=== PATIENT | male | born 1970 | race Caucasian/White ===

== ENCOUNTER 2021-01-23 21:15 | Emergency (ER) | payer OTHER, SELFPAY ==
--- NOTE | ~2021-01-23 | XR_ITS ---
EXAMINATION: XR HIP, LEFT CLINICAL INFORMATION: Status post fall COMPARISON: None TECHNIQUE: Single view of the pelvis and 2 views of the left hip. FINDINGS: Pelvic image shows no fracture. 2 detail views of the left hip do not show fracture or dislocation. XR/XR hip LT w PEL1V IMPRESSION: No pelvic fracture is seen. No fracture or dislocation of the left hip.
--- NOTE | ~2021-01-23 | XR_ITS ---
EXAMINATION: XR FACIAL BONES CLINICAL INFORMATION: Fall COMPARISON: None TECHNIQUE: 4 views FINDINGS: No fracture XR/XR facial bones min 3V IMPRESSION: No fracture of the facial bones on the imaging submitted.
[2021-01-23 21:16] VITALS: BP 154/89; PULSE 77; RESP 16; TEMP 36.8; O2SAT 100; BMI 26.3
--- NOTE | 2021-01-23 21:52 | ED.FALL ---
HPI - Fall General Chief Complaint: Fall Stated Complaint: fall in shower Time Seen by Provider: 01/23/21 21:52 Source: patient Mode of arrival: ambulatory Limitations: language barrier History of Present Illness HPI Narrative: Patient slipped lost balance and fell in shower hitting his left maxillary area to the wall and left hip to the ground complaining of pain in the left hip and face no loss of consciousness no other injuries patient is ambulatory MD complaint: fall Onset (ago): minute(s) Fall from: standing Related Data Home Medications Medication Instructions Recorded Confirmed folic acid 1 mg tablet 1 mg PO DAILY 11/05/20 11/05/20 methotrexate sodium 2.5 mg tablet 2.5 mg PO QWEEK 11/05/20 11/05/20 Previous Rx's Medication Instructions Recorded pantoprazole 40 mg tablet,delayed 40 mg PO DAILY 90 Days #90 tab 11/05/20 release Allergies Allergy/AdvReac Type Severity Reaction Status Date / Time No Known Allergies Allergy Verified 01/23/21 21:22 [No Known Allergies*] Review of Systems Review of Systems: Constitutional : No Weight loss, No Fever, No Chills ENT/Mouth : No sore throat, No Rhinorrhea Eyes: No Eye Pain, No Swelling Cardiovascular : No Chest Pain, no palpitations Respiratory : No Cough, No Sputum, no shortness of breath Gastrointestinal : no Nausea, No Vomiting, No Diarrhea, No abdominal Pain, no black stools Genitourinary : No Dysuria, No Urinary Frequency Musculoskeletal : No joint pain, No Myalgias, No Joint Swelling Skin : No Skin Lesions, No rash Neuro : No Weakness, No Numbness, No Dizziness, No Headache Psych : No Anxiety/Panic, No Depression Heme/Lymph: No Bruising, No Lymphadenopathy Endocrine : No Polyuria, No Polydipsia All other systems reviewed and are negative [facility] Past Medical History Medical History GERD (gastroesophageal reflux disease) Psoriatic arthritis Surgical History No pertinent past surgical history Family History Family History Father No problems noted. Mother No problems noted. Brother Asthma Social History Social History Smoking Status: Former smoker Advance Directives: No Advance Directives Information Provided: No Physical Exam Vital Signs: Vital Signs: Last Vital Signs Temp 98.2 F 01/23/21 21:16 Pulse 77 01/23/21 21:16 Resp 16 01/23/21 21:16 BP 154/89 H 01/23/21 21:16 Pulse Ox 100 01/23/21 21:16 Body Mass Index 26.3 Const: General: no acute distress Orientation/consciousness: patient oriented x3 HENMT: Head: Yes No palpable skull fracture present, Yes normocephalic and No palpable skull fracture Head images: 1. Soft tissue swelling left maxillary area Eyes: General: appearance normal, both eyes and all related structures Neck: Neck: Yes normal visual inspection Chest: Chest palpation & inspection: normal palpation of entire chest wall Resp: Effort & Inspection: normal respiratory effort Auscultation: clear to auscultation bilaterally, no crackles and no rales Cardio: Palpation: normal PMI Rate: regular rate Rhythm: regular rhythm Heart sounds: S1 normal heart sound present and S2 normal heart sound present GI: Inspection: Yes normal to inspection Palpation (GI): Soft to palpation and nontender Back/Spine/Pelvis: Thoracic/Lumbar Spine: thoracic and lumbar spine normal to inspection, No thoracic spinal tenderness and No lumbar spinal tenderness Skin: General skin exam: no rashes or lesions noted Neuro: General: patient oriented x3 and no focal motor deficits Extrem: General: Yes normal to inspection, Yes full ROM and Yes normal gait Upper/lower leg/hip images: 1. Soft tissue tenderness left iliac area good range of movement of left hip MDM - Fall MDM Narrative Medical decision making narrative: Patient with mechanical fall x-ray of facial bones and left hip negative discharge patient home on ice pack ibuprofen for pain Discharge Plan Discharge Clinical Impression: Fall Qualifiers: Encounter type: initial encounter Qualified Code(s): W19.XXXA - Unspecified fall, initial encounter Contusion Qualifiers: Encounter type: initial encounter Contusion area: lower leg Laterality: left Qualified Code(s): S80.12XA - Contusion of left lower leg, initial encounter Patient Disposition: Home, Self-Care Instructions: Facial Contusion (ED) Additional Instructions: Apply ice. Take Tylenol/ibuprofen for pain as needed Prescriptions: No Action methotrexate sodium 2.5 mg tablet 2.5 mg PO QWEEK RF: 0 folic acid 1 mg tablet 1 mg PO DAILY RF: 0 pantoprazole 40 mg tablet,delayed release (DR/EC) 40 mg PO DAILY 90 Days Qty: 90 RF: 3 Stand Alone Forms: Work/School Release
[2021-01-23] MEDS: Ibuprofen 600 MG TABLET PO (22:52)
== END 2021-01-23 23:01 | disposition home or self-care (01) ==
PROVIDERS: Emergency Provider Internal Medicine; PCP Internal Medicine
DX: S00.83XA Contusion of other part of head, initial encounter (principal); S80.12XA Contusion of left lower leg, initial encounter; W18.2XXA Fall in (into) shower or empty bathtub, initial encounter; Y93.E1 Activity, personal bathing and showering; Y92.031 Bathroom in apartment as the place of occurrence of the external cause; Y99.9 Unspecified external cause status
CPT/HCPCS: 70150; 73502; 99283; 99284

== ENCOUNTER 2022-03-23 08:45 | Day surgery (SDC) | payer OTHER, SELFPAY ==
--- NOTE | 2022-03-22 13:13 | HO.ANESPROP2 ---
Documented by User: Indigo De La Garza NP 03/22/22 13:13 HPI - Anesthesia Eval Consult details Narrative: 51yo M for Colonoscopy PMFSH Active Problems Active Problems: All Active Problems (Updated 12/24/21 @ 09:12 by ALYSSA Maciel) Nausea (Acute) Former smoker (Acute) Shortness of breath (Acute) Chronic cough (Acute) Nausea & vomiting (Acute) Elevated blood pressure reading in office without diagnosis of hypertension (Acute) Overweight (BMI 25.0-29.9) (Acute) Psoriatic arthritis (Acute) GERD (gastroesophageal reflux disease) (Acute) Past Medical History Medical History Elevated blood pressure reading in office without diagnosis of hypertension GERD (gastroesophageal reflux disease) Overweight (BMI 25.0-29.9) Psoriatic arthritis Family History Family History Father No problems noted. Mother No problems noted. Brother Asthma Surgical History Surgical History No pertinent past surgical history Social History Social History Housing: Apartment Are you a primary rn long term care to a significant other at home: No Do you presently have visiting nurse or other home services: No Alcohol intake: former Patient Tobacco Use Status: Former Tobacco user Tobacco use type: Cigarette e-Cigarette/Vaping Use: Never Used Second Hand Smoke Exposure: No Use of substances other than those prescribed or required for medical reasons: No Have you been hit, kicked, punched, or otherwise hurt by someone within the past year? If so, by whom?: No Are you DNR?: No Advance Directives: No Advance Directives Information Provided: Yes Recently lost weight without trying: No Nutrition Risks: No Nutritional Risk Poor oral hygiene: No service: No Current occupational status: employed Current occupational exposures/hazards: No Cognitive needs: No Hearing needs: No Vision needs: No Meds Allergies Allergy/AdvReac Type Severity Reaction Status Date / Time No Known Allergies Allergy Verified 12/24/21 08:21 [No Known Allergies*] Exam Exam Date and Time: March 22, 2022 1313 Assessment and Plan Assessment Anesthesia Assessment: Chart Reviewed Documented by User: Sarina Zaidi MD 03/23/22 10:46 PMFSH Past Medical History Medical History Elevated blood pressure reading in office without diagnosis of hypertension GERD (gastroesophageal reflux disease) Overweight (BMI 25.0-29.9) Psoriatic arthritis Family History Family History Father No problems noted. Mother No problems noted. Brother Asthma Surgical History Surgical History No pertinent past surgical history History of Problems with Anesthesia: No Social History Social History Housing: Apartment Are you a primary rn long term care to a significant other at home: No Do you presently have visiting nurse or other home services: No Alcohol intake: former Patient Tobacco Use Status: Former Tobacco user Tobacco use type: Cigarette e-Cigarette/Vaping Use: Never Used Second Hand Smoke Exposure: No Use of substances other than those prescribed or required for medical reasons: No Have you been hit, kicked, punched, or otherwise hurt by someone within the past year? If so, by whom?: No Are you DNR?: No Advance Directives: No Advance Directives Information Provided: Yes Recently lost weight without trying: No Nutrition Risks: No Nutritional Risk Poor oral hygiene: No service: No Current occupational status: employed Current occupational exposures/hazards: No Cognitive needs: No Hearing needs: No Vision needs: No Meds Allergies Allergy/AdvReac Type Severity Reaction Status Date / Time No Known Allergies Allergy Verified 12/24/21 08:21 [No Known Allergies*] Exam Airway Mallampati Class: III TM Dist: >3cm Neck ROM: Full Loose/Missing/Broken Teeth: No Heart: RRR Lungs: CTA Assessment and Plan Assessment Anesthesia Assessment: Anesthesia Plan Discussed Final Anesthetic Review History of Problems with Anesthesia: No NPO: Yes ASA Class: II Final Preanesthetic Review: Meds/Allgs Chart Reviewed, Consent Obtained/Reviewed and Anes Risks/Benef Reviewed Patient Risk: Low Procedure Risk: Intermediate Anesthetic Plan Anesthetic Plan: MAC: Disposition: Standard PACU
[2022-03-23 09:03] VITALS: BMI 26.6
--- NOTE | 2022-03-23 09:26 | P.HPSUR_ITS ---
Pre-Procedural Eval Section A Date of Service: 03/23/22 Section B Chief Complaint: screening Details of Present Illness: He also describes severe coughing fits when eating food followed by episodes of vomiting, and reflux. denies dysphagia Relevant Family History (Specify if Yes): No Relevant Social History: None (ex smoker) Present Medications: see Short Stay Collaborative assessment Medical History: Significant History (Elevated blood pressure reading in office without diagnosis of hypertension GERD (gastroesophageal reflux disease) Overweight (BMI 25.0-29.9) Psoriatic arthritis) History of Previous Operations: No relevant previous surgery Allergies: Allergies Allergy/AdvReac Type Severity Reaction Status Date / Time No Known Allergies Allergy Verified 12/24/21 08:21 [No Known Allergies*] Review of Systems Sugical H&P ROS: Negative: Constitution, Cardiovascular, Respiratory, Neurological, Psychiatric, Hem-Onc, Allergic/Immunologic, Gastrointestinal, Genitourinary, Musculoskeletal, Integumentary, Endocrine and Ey es/Ears/Nose/Throat Exam Surgical H&P Exam: Normal: HEENT, Normal: Heart, Normal: Lungs, Normal: Extremities, Normal: Abdomen, Normal: Skin and Normal: Neurological Plan Diagnosis/Plan: Change (EGD was added after history obtained from patient as above) I have reviewed the history and physical and performed a pertinent physical examination on my patient. colonoscopy for screening. EGD for post prandial coughing and vomiting to r/o hiatal hernia, gastric outlet obstruction
[2022-03-23 09:28] VITALS: BP 142/106; PULSE 100; RESP 18; TEMP 36.6; O2SAT 99
[2022-03-23] MEDS: Sodium Phosphate,Mono-Dibasic 133 ML ENEMA PR (09:45)
[2022-03-23] MEDS: Lactated Ringers 1,000 ML 100 ML IVCONT (09:45)
--- NOTE | 2022-03-23 10:26 | P.BOP_ITS ---
Brief Operative Note Date of Service: 03/23/22 Pre-op diagnosis: colon screening and post prandial coughing and vomiting Post-op diagnosis: same Procedure: see op note Surgeon: Susie Santana MD Anesthesia: MAC Was an Certified Orthotist Practice Manager used for this Procedure?: No Estimated blood loss (mL): 0 Condition: stable Disposition: PACU
--- NOTE | 2022-03-23 10:26 | P.OP_ITS ---
Operative Note Operative Note Date of Service: 03/23/22 Narrative: Operative Information Procedure Description: EGD, Colonoscopy Indication: colon screening and post prandial coughing and vomiting Anesthesia: MAC FLEXIBLE TRANSORAL UPPER GASTROINTESTINAL ENDOSCOPY AND COLONOSCOPY PROCEDURE NOTE UPPER ENDOSCOPY Consent: Indications for the procedure and potential complications of bleeding, perforation, reaction to medications and missed diagnosis were discussed with the patient and informed consent was obtained. Instrument: Olympus GIF H 190 J mid size upper endoscope Monitoring: Vital signs and clinical assessment, continuous EKG monitoring, Pulse oximetry, Carbon Dioxide monitoring and blood pressure monitoring were done throughout the procedure. Procedure: The patient was placed in the left lateral decubitis position and pre-procedure medications were administered and a bite block was placed. The endoscope was inserted into the mouth and advanced under direct vision to the third part of duodenum. A careful inspection was made as the upper endoscope was withdrawn including a retroflexed examination of the proximal stomach; Findings and interventions are described below. Findings: Larynx:normal Esophagus: GE junction at 38 cm, diaphragm hiatus at 40 cm, consistent with 2 cm sliding hiatal hernia, small streaky erosions noted at GEJ, consistent with LA grade A erosive esophagitis. bx taken from GEJ. small esophageal inlet patch noted. Stomach: Streakly linear erosions in body and antrum. Biopsies were obtained. Grade 2 flap valve on retroflexed examination of the cardia. Duodenum: Moderate severe bulbar duodenitis, bx taken Intervention: Biopsies as noted above COLONOSCOPY Instrument: Olympus variable stiffness pediatric scope 190L Colonoscopy Monitoring: Vital signs and clinical assessment, continuous EKG monitoring, Pulse oximetry, Carbon Dioxide monitoring and blood pressure monitoring were done throughout the procedure. Colon withdrawal time was 7 minutes. Procedure: The patient was placed in the left lateral decubitis position and pre-procedure medications were administered. After a digital rectal examination of the ano-rectum, the video colonoscope was inserted into the rectum and advanced through the colon to the cecum/TI. The colonoscope was slowly withdrawn in a retrograde panoramic fashion and the colon mucosa was carefully examined including a retroflexed view of the rectum. Findings and interventions are described below. Procedure Difficulty:easy Findings: Terminal Ileum-normal Cecum:normal right sided retroflexion was normal Ascending Colon: normal Transverse Colon -normal Descending Colon:normal Sigmoid Colon: mild diverticulosis with small tics seen Rectum: Retroflexion with small internal hemorrhoids, grade I with skin tags Anorectum - normal Colon preparation: [place] Bowel Preparation Scale Right colon; 2 Transverse colon: 3 Left colon; 3 (0 = Unprepared colon segment with mucosa not seen due to solid stool that cannot be cleared. 1 = Portion of mucosa of the colon segment seen, but other areas of the colon segment not well seen due to staining, residual stool and/or opaque liquid. 2 = Minor amount of residual staining, small fragments of stool and/or opaque liquid, but mucosa of colon segment seen well. 3 = Entire mucosa of colon segment seen well with no residual staining, small fragments of stool or opaque liquid) Impression and Post Procedure Diagnosis: Endoscopy Findings: erosive gastritis erosive esophagitis hiatal hernia duodenitis esophgeal inlet patch (benign finding) Colonoscopy Findings: internal hemorrhoids diverticular disease Plan: Await Pathology results Repeat Colonoscopy in 10 years or earlier if clinically indicated High fiber diet leaflet avoid straining at stool, epsom salts and sitz bath, anusol supps or cream If H pylori pos then treat Recommend High dose PPI for 3months then titrate down to response check nsaid history Above findings were reviewed with the patient and relevant handouts were provided if indicated.
[2022-03-23 10:55] VITALS: BP 85/50; PULSE 84; RESP 18; TEMP 36.2; O2SAT 99
[2022-03-23 11:10] VITALS: BP 101/70; PULSE 83; RESP 18; O2SAT 98
[2022-03-23 11:25] VITALS: BP 106/70; PULSE 84; RESP 18; TEMP 36.2; O2SAT 98
== END 2022-03-23 11:55 | disposition home or self-care (01) ==
PROVIDERS: PCP Internal Medicine; Visit Provider Internal Medicine Gastroenterology
PROC: 0DJD8ZZ Inspection of Lower Intestinal Tract, Via Natural or Artificial Opening Endoscopic (ICD-10-PCS; CPT 45378; principal; 2022-03-23 10:20)
DX: Z12.11 Encounter for screening for malignant neoplasm of colon (principal); K57.30 Diverticulosis of large intestine without perforation or abscess without bleeding; K64.0 First degree hemorrhoids; K64.4 Residual hemorrhoidal skin tags; K21.9 Gastro-esophageal reflux disease without esophagitis; K29.60 Other gastritis without bleeding; K29.80 Duodenitis without bleeding; K20.80 Other esophagitis without bleeding; K44.9 Diaphragmatic hernia without obstruction or gangrene; Q39.8 Other congenital malformations of esophagus; R05.3 Chronic cough; R06.02 Shortness of breath; R03.0 Elevated blood-pressure reading, without diagnosis of hypertension; E66.3 Overweight; Z68.26 Body mass index [BMI] 26.0-26.9, adult; L40.50 Arthropathic psoriasis, unspecified; Z79.899 Other long term (current) drug therapy; Z87.891 Personal history of nicotine dependence
CPT/HCPCS: 45378; 43239; 88305; 88342

== ENCOUNTER 2022-05-05 09:13 | Outpatient (REF) | payer OTHER, SELFPAY ==
[2022-05-06 17:27] LABS: H Pylori Breath Test Negative (Negative)
== END 2022-05-05 09:14 | disposition home or self-care (01) ==
LOC: HO.LAB 09:13
PROVIDERS: Visit Provider Internal Medicine Gastroenterology
DX: K21.9 Gastro-esophageal reflux disease without esophagitis (principal); R11.0 Nausea
CPT/HCPCS: 36415; 83013

== ENCOUNTER 2023-08-04 14:59 | Outpatient (AMB) | payer OTHER, SELFPAY ==
--- NOTE | 2023-08-04 15:02 | A.OFFPC_ITS ---
Vital Signs 08/04/23 15:03 Height 5 ft 7 in Weight 169 lb BMI 26.5 BP 126/82 Blood Pressure Location Lt brachial Position Sitting Intake Visit Reasons: physical exam Intake Note: Patient here for a physical exam [employer] Required: No Accompanied by: Self / Same As Patient Allergies No Known Allergies [No Known Allergies*] Allergy (Verified 08/04/23 15:15) Medication List - Last Reconciled 08/04/23 by Leann Liz MD No Known Home Meds Tobacco use date assessed: 08/04/23 Dental Screening Dental Screen Date: 08/04/23 Did you have a dental visit in the last 12 months?: Yes Did you have a dental problem in the last 6 months where you did not have access to dental care?: No Was dental information given to patient?: Patient has dentist HPI HPI Comments History of Present Illness Details This is a 52-year-old male that comes for his physical exam. Last colonoscopy was 2021 was normal. No chest pain or shortness of breath. [facility] Medical History Elevated blood pressure reading in office without diagnosis of hypertension Overweight (BMI 25.0-29.9) Psoriatic arthritis GERD (gastroesophageal reflux disease) Surgical History No pertinent past surgical history Family History Father No problems noted. Mother No problems noted. Brother Asthma Social History Housing: Apartment Are you a primary health care analyst to a significant other at home: No Do you presently have visiting nurse or other home services: No Alcohol intake: former Patient Tobacco Use Status: Former Tobacco user Tobacco use type: Cigarette e-Cigarette/Vaping Use: Never Used Second Hand Smoke Exposure: No service: No Current occupational status: employed Current occupational exposures/hazards: No Cognitive needs: No Hearing needs: No Vision needs: No Questionnaire PHQ-9 Over the last 2 weeks, how often have you been bothered by any of the following problems? 1. Little interest or pleasure in doing things: not at all 2. Feeling down, depressed, or hopeless: not at all 3. Trouble falling or staying asleep, or sleeping too much: not at all 4. Feeling tired or having little energy: not at all 5. Poor appetite or overeating: not at all 6. Feeling bad about yourself - or that you are a failure or have let yourself or your family down: not at all 7. Trouble concentrating on things, such as reading the newspaper or watching television: not at all 8. Moving or speaking so slowly that other people could have noticed. Or the opposite - being so fidgety or restless that you have been moving around a lot more than usual: not at all 9. Thoughts that you would be better off or of hurting yourself in some way: not at all Total score: 0 Depression Screening Interpretation: Negative 28850 - PHQ-9 Billing: Yes Source: Developed by Drs. Liang Bravo, Lili Castro, Gigi Cantor and colleagues, with an educational alba from [employer]. Thrive Questionnaire Date Thrive assessed: 08/04/23 I am a: Patient What is your living situation today?: I have a steady place to live Within the past 12 months, did the food you bought not last and you didn't have the money to get more?: Never true Within the past 12 months, did you worry whether your food would run out before you got money to buy more?: Never true Do you have trouble paying for medicines?: No Do you have trouble getting transportation to medical appointments?: No Do you have trouble paying your heating and electricity bill?: No Do you have trouble taking care of your child, family member or friend?: No Do you have trouble with day-to-day activities such as bathing, preparing meals, shopping, managing finances, etc.?: No Are you currently unemployed and looking for a job?: No Are you interested in more education?: No Please select the resources that you would like help with: None Currently or been in a relationship where the following occur: no concerns reported AUDIT C Alcohol Use Questionnaire (AUDIT-C) 1. How often do you have a drink containing alcohol?: Never Total Score: 0 Score Reviewed/Action Taken: No HEATH-7 AMB Questionnaire HEATH-7 Date HEATH - 7 assessed: 08/04/23 Feeling nervous, anxious, or on edge: 0 = Not at all Not being able to stop or control worryin = Not at all Worrying too much about different things: 0 = Not at all Trouble relaxin = Not at all Being so restless that it is hard to sit still: 0 = Not at all Becoming easily annoyed or irritable: 0 = Not at all Feeling afraid as if something awful might happen: 0 = Not at all Total HEATH-7 score (0-4 normal; 5-9 mild; 10-14 moderate; 15-21 severe): 0 Source: Developed by Drs. Liang Bravo, Lili Castro, Gigi Cantor and colleagues, with an educational alba from [employer]. HEATH-7 Assessment Billing HEATH-7 Assessment Tool: HEATH-7 Assessment 29209 Review of Systems Const All systems reviewed & are unremarkable except as noted in HPI and below Eyes Reports no additional complaints, Denies change in vision and Denies other visual disturbances Card Denies chest pain at rest, Denies chest pain with activity, Denies edema, Denies irregular heart rhythm, Denies claudication, Denies dyspnea, Denies dyspnea on exertion, Denies orthopnea, Denies paroxysmal nocturnal dyspnea and Denies slow heart rate Resp Denies cough, Denies dyspnea and Denies dyspnea on exertion GI Denies abdominal pain, Denies change in bowel habits, Denies excessive flatus, Denies nausea and Denies vomiting Denies urinary hesitancy, Denies urinary incontinence and Denies urinary urgency Musc Denies abnormal gait, Denies atrophy, Denies deformity and Denies limited range of motion Skin/Breast Denies bleeding lesions, Denies changing lesions and Denies rash Neuro Denies abnormal gait and Denies lack of coordination Physical exam (Primary Care) Vital Signs: Last Vital Signs BP 126/82 08/04/23 15:03 BMI result Body Mass Index 26.5 Tobacco/Smoking Status: Tobacco use Status Tobacco use date assessed 08/04/23 08/04/23 15:09 Patient Tobacco Use Status Former Tobacco user 08/04/23 15:09 Tobacco use type Cigarette 08/04/23 15:09 e-Cigarette/Vaping Use Never Used 08/04/23 15:09 PHQ-9: PHQ-9 Score PHQ-9: Total score 0 08/04/23 15:09 Depression Screening Interpretation: Negative Thrive Assessment: Date of Thrive Assessment Date Thrive assessed 08/04/23 08/04/23 15:09 Currently or been in a relationship where the following occur: no concerns reported Const Orientation/consciousness: patient oriented x3 HENMT Head: Yes normal to inspection, Yes normocephalic and Yes atraumatic Ears: external ears normal Eyes General: appearance normal, both eyes and all related structures Eyelids: Yes eyelids normal Conjunctivae: conjunctivae normal Neck Neck: Yes normal visual inspection and Yes supple Resp Effort & Inspection: normal respiratory effort Auscultation: clear to auscultation bilaterally Cardio Jugular venous distension: no JVD Rate: regular rate Rhythm: regular rhythm Heart sounds: S1 normal heart sound present and S2 normal heart sound present GI Inspection: Yes normal to inspection Palpation (GI): Soft to palpation and nontender Auscultation: normal bowel sounds Skin General skin exam: no rashes or lesions noted Neuro General: patient oriented x3 and no focal motor deficits Extrem General: Yes full ROM Psych Appearance: grossly normal Assessment and Plan Assessment & Plan (1) Physical exam: Code(s): Z00.00 - Encounter for general adult medical examination without abnormal findings Plan: Repeat in a year Coding Level of Care Code Est Pt Prev Care 40-64y(76691) Diagnoses Physical exam Z00.00 Additional Codes HEATH-7 Assessment Billing - HEATH-7 Assessment Tool: HEATH-7 Assessment 75930 ([id number]) Time Spent (min) 31
[2023-08-04 15:03] VITALS: BP 126/82; BMI 26.5
== END 2023-08-04 15:23 | disposition home or self-care (01) ==
PROVIDERS: PCP Internal Medicine; Visit Provider Internal Medicine
DX: Z00.00 Encounter for general adult medical examination without abnormal findings (principal)
CPT/HCPCS: 99396

== ENCOUNTER 2024-03-20 15:04 | Outpatient (AMB) | payer OTHER, SELFPAY ==
--- NOTE | 2024-03-20 15:05 | A.OFFPC_ITS ---
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 He started to have some silvery scaly plaques in both hands. No chest pain or shortness of breath. Doing well. [facility] Medical History Elevated blood pressure reading in office without diagnosis of hypertension Overweight (BMI 25.0-29.9) Psoriatic arthritis GERD (gastroesophageal reflux disease) Surgical History No pertinent past surgical history Family History Father No problems noted. Mother No problems noted. Brother Asthma Social History Housing: Apartment Are you a primary care manager cna to a significant other at home: No Do you presently have visiting nurse or other home services: No Alcohol intake: former Patient Tobacco Use Status: Former Tobacco user Tobacco use type: Cigarette e-Cigarette/Vaping Use: Never Used Second Hand Smoke Exposure: No service: No Current occupational status: employed Current occupational exposures/hazards: No Cognitive needs: No Hearing needs: No Vision needs: Yes Questionnaire PHQ-9 Over the last 2 weeks, how often have you been bothered by any of the following problems? 1. Little interest or pleasure in doing things: not at all 2. Feeling down, depressed, or hopeless: not at all 3. Trouble falling or staying asleep, or sleeping too much: not at all 4. Feeling tired or having little energy: several days 5. Poor appetite or overeating: not at all 6. Feeling bad about yourself - or that you are a failure or have let yourself or your family down: not at all 7. Trouble concentrating on things, such as reading the newspaper or watching television: not at all 8. Moving or speaking so slowly that other people could have noticed. Or the opposite - being so fidgety or restless that you have been moving around a lot more than usual: not at all 9. Thoughts that you would be better off or of hurting yourself in some way: not at all Total score: 1 Depression Screening Interpretation: Negative Depression Screening Done: Yes 11345 - PHQ-9 Billing: Yes Source: Developed by Drs. Liang Bravo, Lili Castro, Gigi Cantor and colleagues, with an educational alba from [employer]. Thrive Questionnaire Date Thrive assessed: 03/20/24 I am a: Patient What is your living situation today?: I have a steady place to live Within the past 12 months, did the food you bought not last and you didn't have the money to get more?: Never true Within the past 12 months, did you worry whether your food would run out before you got money to buy more?: Never true Do you have trouble paying for medicines?: No Do you have trouble getting transportation to medical appointments?: No Do you have trouble paying your heating and electricity bill?: No Do you have trouble taking care of your child, family member or friend?: No Do you have trouble with day-to-day activities such as bathing, preparing meals, shopping, managing finances, etc.?: No Are you currently unemployed and looking for a job?: No Are you interested in more education?: No Please select the resources that you would like help with: None Currently or been in a relationship where the following occur: no concerns reported THRIVE Score: 0 AUDIT C Alcohol Use Questionnaire (AUDIT-C) 1. How often do you have a drink containing alcohol?: Never Total Score: 0 Score Reviewed/Action Taken: No HEATH-7 AMB Questionnaire HEATH-7 Date HEATH - 7 assessed: 03/20/24 Feeling nervous, anxious, or on edge: 0 = Not at all Not being able to stop or control worryin = Not at all Worrying too much about different things: 0 = Not at all Trouble relaxin = Not at all Being so restless that it is hard to sit still: 0 = Not at all Becoming easily annoyed or irritable: 0 = Not at all Feeling afraid as if something awful might happen: 0 = Not at all Total HEATH-7 score (0-4 normal; 5-9 mild; 10-14 moderate; 15-21 severe): 0 Source: Developed by Drs. Liang Bravo, Lili Castro, Gigi Cantor and colleagues, with an educational alba from [employer]. HEATH-7 Assessment Billing HEATH-7 Assessment Tool: HEATH-7 Assessment 72990 Review of Systems Const All systems reviewed & are unremarkable except as noted in HPI and below Card Denies chest pain at rest, Denies chest pain with activity, Denies edema, Denies irregular heart rhythm, Denies claudication, Denies dyspnea, Denies dyspnea on exertion, Denies orthopnea, Denies paroxysmal nocturnal dyspnea and Denies slow heart rate Resp Denies cough, Denies dyspnea and Denies dyspnea on exertion GI Denies abdominal pain, Denies change in bowel habits, Denies excessive flatus, Denies nausea and Denies vomiting Skin/Breast Reports lesions Physical exam (Primary Care) Vital Signs: Last Vital Signs BP 130/82 03/20/24 15:06 BMI result Body Mass Index 26.6 Tobacco/Smoking Status: Tobacco use Status Tobacco use date assessed 03/20/24 03/20/24 15:12 Patient Tobacco Use Status Former Tobacco user 03/20/24 15:12 Tobacco use type Cigarette 03/20/24 15:12 e-Cigarette/Vaping Use Never Used 03/20/24 15:12 PHQ-9: PHQ-9 Score PHQ-9: Total score 1 03/20/24 15:12 Depression Screening Interpretation: Negative Thrive Assessment: Date of Thrive Assessment Date Thrive assessed 03/20/24 03/20/24 15:12 Currently or been in a relationship where the following occur: no concerns reported Resp Effort & Inspection: normal respiratory effort Auscultation: clear to auscultation bilaterally Cardio Jugular venous distension: no JVD Rate: regular rate Rhythm: regular rhythm Heart sounds: S1 normal heart sound present and S2 normal heart sound present Skin Lesions: lesion noted (Silvery scaly plaques in hands) Extrem General: Yes full ROM Assessment and Plan Assessment & Plan (1) Psoriasis: Code(s): L40.9 - Psoriasis, unspecified Plan: Start cream. Orders: Orders Lipid Panel Today E78.5 - Hyperlipidemia, unspecified Comprehensive [place]. Panel Fast Today L40.9 - Psoriasis, unspecified PSA,Total (Free>4and<10) Today Z12.5 - Encounter for screening for malignant neoplasm of prostate Complete Blood Count Auto Diff Today L40.9 - Psoriasis, unspecified Medications: New hydrocortisone 1% (Anti-Itch (hydrocortisone)) 1 appl topical TID 30 days PRN 28.4 grams 2RF skin irritation L40.9 - Psoriasis, unspecified Coding Level of Care Code Est Pt Level 3 (59302) Diagnoses Psoriasis L40.9 Additional Codes HEATH-7 Assessment Billing - HEATH-7 Assessment Tool: HEATH-7 Assessment 91108 ([id number]) Time Spent (min) 19
[2024-03-20 15:06] VITALS: BP 130/82; BMI 26.6
== END 2024-03-20 15:33 | disposition home or self-care (01) ==
PROVIDERS: PCP Internal Medicine; Visit Provider Internal Medicine
DX: L40.9 Psoriasis, unspecified (principal)
CPT/HCPCS: 99213

== ENCOUNTER 2024-03-21 07:30 | Outpatient (REF) | payer OTHER, SELFPAY ==
[2024-03-21 07:42] LABS: MANUAL DIFF FLAG NO
[2024-03-21 08:03] LABS: Basophils Absolute Auto 0.1 X10*3/uL (0.0-0.2); Basophils Percent Auto 0.8 % (0-2); Eosinophils Absolute Auto 0.2 X10*3/uL (0.0-0.4); Eosinophils Percent Auto 2.4 % (0-4); Hematocrit 49.9 % (42.0-52.0); Imm Gran Abs Auto 0.05 X10*3/uL (0.00-0.03); Imm Gran Pct Auto 0.7 % (0.0-0.4); Lymphocytes Absolute Auto 2.1 X10*3/uL (1.2-4.9); Mean Corpuscular HGB Conc 34.1 g/dl (31.0-36.0); Mean Corpuscular Hemoglobin 30.8 pg (27.0-33.0); Mean Corpuscular Volume 90.4 fL (80.0-98.0); Mean Platelet Volume 10.5 fL (9.4-12.4); Monocytes Absolute Auto 0.5 X10*3/uL (0.1-1.2); Monocytes Percent Auto 6.5 % (2-11); Neutrophils Absolute Auto 4.4 x10*3/uL (2.0-8.3); Neutrophils Percent Auto 60.6 % (45-73); Platelet Count 206 X10*3/uL (160-400); Red Blood Count 5.52 X10*6/uL (4.60-5.80); Red Cell Distribution Width 12.7 % (11.0-16.0); White Blood Count 7.2 X10*3/uL (4.8-10.8)
[2024-03-21 08:35] LABS: Alanine Aminotransferase 47 U/L (0-40); Albumin Level 4.4 g/dL (3.5-5.0); Alkaline Phosphatase 50 U/L (39-117); Anion Gap 13 (12-20); Aspartate Amino Transferase 23 U/L (5-37); Bilirubin Total 1.3 mg/dL (0.0-1.0); Blood Urea Nitrogen 19 mg/dL (9-16); Calcium 9.4 mg/dL (8.4-10.2); Carbon Dioxide 25 mmol/L (22-29); Chloride 107 mmol/L (96-108); Cholesterol 144 mg/dL (<200); Estimated Glomerular Filt Rate > 60; Glucose Fasting 95 mg/dL (60-99); HDL Cholesterol 45 mg/dL (>40); LDL Cholesterol Calculated 77 mg/dL (<100); Potassium 4.3 mmol/L (3.3-5.1); Sodium 141 mmol/L (135-145); Total Protein 7.5 g/dL (6.5-8.0); Triglycerides 111 mg/dL (<150)
[2024-03-21 08:48] LABS: PSA,Total (Free>4and<10) 1.15 ng/mL (0.00-4.00)
== END 2024-03-21 07:31 | disposition home or self-care (01) ==
LOC: HO.LAB 07:30
PROVIDERS: PCP Internal Medicine; Visit Provider Internal Medicine
DX: Z12.5 Encounter for screening for malignant neoplasm of prostate (principal); L40.9 Psoriasis, unspecified; E78.5 Hyperlipidemia, unspecified
CPT/HCPCS: 36415; 80053; 80061; 84153; 85025

== ENCOUNTER 2024-09-18 09:12 | Outpatient (AMB) | payer OTHER, SELFPAY ==
--- NOTE | 2024-09-18 09:16 | MHC.PC.OV ---
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 Colonoscopy done 2021 was normal. He complains of left shoulder pain and left elbow pain that started few weeks ago with no previous trauma. Has full active range of motion. He also has been having elevated blood pressure for the past 2 months with no chest pain or shortness on breath. No headaches. I will start him on losartan and blood pressure will be recheck in 3 weeks by nurse navigator. [facility] Medical History (Updated 09/18/24 @ 09:45 by Leann Liz MD) Elevated blood pressure reading in office without diagnosis of hypertension Overweight (BMI 25.0-29.9) Psoriatic arthritis GERD (gastroesophageal reflux disease) Surgical History No pertinent past surgical history Family History Father No problems noted. Mother No problems noted. Brother Asthma Social History Housing: Apartment Are you a primary respiratory care technician to a significant other at home: No Do you presently have visiting nurse or other home services: No Alcohol intake: former Patient Tobacco Use Status: Former Tobacco user Tobacco use type: Cigarette e-Cigarette/Vaping Use: Never Used Second Hand Smoke Exposure: No service: No Current occupational status: employed Current occupational exposures/hazards: No Cognitive needs: No Hearing needs: No Vision needs: Yes Questionnaire PHQ-9 Over the last 2 weeks, how often have you been bothered by any of the following problems? 1. Little interest or pleasure in doing things: not at all 2. Feeling down, depressed, or hopeless: not at all 3. Trouble falling or staying asleep, or sleeping too much: not at all 4. Feeling tired or having little energy: not at all 5. Poor appetite or overeating: not at all 6. Feeling bad about yourself - or that you are a failure or have let yourself or your family down: not at all 7. Trouble concentrating on things, such as reading the newspaper or watching television: not at all 8. Moving or speaking so slowly that other people could have noticed. Or the opposite - being so fidgety or restless that you have been moving around a lot more than usual: not at all 9. Thoughts that you would be better off or of hurting yourself in some way: not at all Total score: 0 Depression Screening Interpretation: Negative Depression Screening Done: Yes 50112 - PHQ-9 Billing: Yes Source: Developed by Drs. Liang Bravo, Lili Castro, Gigi Cantor and colleagues, with an educational alba from [employer]. Thrive Questionnaire Date Thrive assessed: 09/18/24 I am a: Patient What is your living situation today?: I have a steady place to live Within the past 12 months, did the food you bought not last and you didn't have the money to get more?: I choose not to answer this question Within the past 12 months, did you worry whether your food would run out before you got money to buy more?: I choose not to answer this question Do you have trouble paying for medicines?: No Do you have trouble getting transportation to medical appointments?: No Do you have trouble paying your heating and electricity bill?: No Do you have trouble taking care of your child, family member or friend?: No Do you have trouble with day-to-day activities such as bathing, preparing meals, shopping, managing finances, etc.?: No Are you currently unemployed and looking for a job?: No Are you interested in more education?: Yes Please select the resources that you would like help with: None Currently or been in a relationship where the following occur: No concerns reported THRIVE Score: 0 AUDIT C Alcohol Use Questionnaire (AUDIT-C) 1. How often do you have a drink containing alcohol?: Never Total Score: 0 HEATH-7 AMB Questionnaire HEATH-7 Date HEATH - 7 assessed: 09/18/24 Feeling nervous, anxious, or on edge: 0 = Not at all Not being able to stop or control worryin = Not at all Worrying too much about different things: 0 = Not at all Trouble relaxin = Not at all Being so restless that it is hard to sit still: 0 = Not at all Becoming easily annoyed or irritable: 0 = Not at all Feeling afraid as if something awful might happen: 0 = Not at all Total HEATH-7 score (0-4 normal; 5-9 mild; 10-14 moderate; 15-21 severe): 0 Source: Developed by Drs. Liang Bravo, Lili Castro, Gigi Cantor and colleagues, with an educational alba from [employer]. HEATH-7 Assessment Billing HEATH-7 Assessment Tool: HEATH-7 Assessment 12932 Review of Systems Const All systems reviewed & are unremarkable except as noted in HPI and below Card Denies chest pain at rest, Denies chest pain with activity, Denies edema, Denies irregular heart rhythm, Denies claudication, Denies dyspnea, Denies dyspnea on exertion, Denies orthopnea, Denies paroxysmal nocturnal dyspnea and Denies slow heart rate Resp Denies cough, Denies dyspnea and Denies dyspnea on exertion GI Denies abdominal pain, Denies change in bowel habits, Denies excessive flatus, Denies nausea and Denies vomiting Denies urinary hesitancy, Denies urinary incontinence and Denies urinary urgency Musc Denies abnormal gait, Denies atrophy, Denies deformity and Denies limited range of motion Skin/Breast Reports lesions Neuro Denies abnormal gait, Denies behavioral changes, Denies confusion and Denies lack of coordination Psych Denies behavioral changes and Denies confusion Physical exam (Primary Care) Vital Signs: Last Vital Signs BP 150/102 H 09/18/24 09:17 Care Plan Goal for BP management: Decrease salt intake. Start losartan. Blood pressure goal is equal or less than 130/80. Next steps: Recheck blood pressure with nurse navigator in 3 weeks. BMI result Body Mass Index 26.8 BMI Assessment/Plan discussion: High BMI High, discussed plan: lifestyle, weight reduction, dietary and physical activity Tobacco/Smoking Status: Tobacco use Status Tobacco use date assessed 03/20/24 09/18/24 09:21 Patient Tobacco Use Status Former Tobacco user 09/18/24 09:21 Tobacco use type Cigarette 09/18/24 09:21 e-Cigarette/Vaping Use Never Used 09/18/24 09:21 PHQ-9: PHQ-9 Score PHQ-9: Total score 0 09/18/24 09:21 Depression Screening Interpretation: Negative Thrive Assessment: Date of Thrive Assessment Date Thrive assessed 09/18/24 09/18/24 09:21 Currently or been in a relationship where the following occur: No concerns reported Const General: No confusion Orientation/consciousness: patient oriented x3 and No confusion HENMT Head: Yes normal to inspection, Yes normocephalic and Yes atraumatic Ears: external ears normal Eyes General: appearance normal, both eyes and all related structures Eyelids: Yes eyelids normal Conjunctivae: conjunctivae normal Neck Neck: Yes normal visual inspection and Yes supple Resp Effort & Inspection: normal respiratory effort Auscultation: clear to auscultation bilaterally Cardio Jugular venous distension: no JVD Rate: regular rate Rhythm: regular rhythm Heart sounds: S1 normal heart sound present and S2 normal heart sound present GI Inspection: Yes normal to inspection Palpation (GI): Soft to palpation and nontender Auscultation: normal bowel sounds Skin Other: silvery scaly plaques in palms of hands Neuro General: patient oriented x3, no focal motor deficits and No confusion Extrem General: Yes full ROM Psych Appearance: grossly normal Office Procedures Flu Questionnaire Does the patient have a severe egg allergy?: No Immunizations Fluarix Triv [id number] (PF) 45 mcg (15 mcg x 3)/0.5 mL IM syringe Performing Provider: Leann Liz MD [place] [facility] [place] [facility] Documented (not given) by: NIRU Turner on 09/18/24 09:22 Reason Not Given: Patient Refused Coding Level of Care Code Est Pt Level 3 (54585) Est Pt Prev Care 40-64y(61543) Diagnoses Physical exam Z00.00 Acute pain of left shoulder M25.512 Chronicity: acute Left elbow pain M25.522 Essential hypertension I10 Additional Codes HEATH-7 Assessment Billing - HEATH-7 Assessment Tool: HEATH-7 Assessment 84576 ([id number]) Time Spent (min) 35 Assessment & Plan Assessment & Plan (1) Physical exam: Code(s): Z00.00 - Encounter for general adult medical examination without abnormal findings Category: Medical Plan: Repeat in a year. (2) Left shoulder pain: Code(s): M25.512 - Pain in left shoulder Category: Medical Qualifiers: Chronicity: acute Qualified Code(s): M25.512 - Pain in left shoulder Plan: X-ray ordered. (3) Left elbow pain: Code(s): M25.522 - Pain in left elbow Category: Medical Plan: X-ray ordered. (4) Essential hypertension: Code(s): I10 - Essential (primary) hypertension Category: Medical Plan: Start losartan. Recheck blood pressure with nurse navigator in 3 weeks. Blood pressure goal is equal or less than 130/80. Follow a low-salt diet. Orders: Orders Influenza [id number] Immunization Today Z23 - Encounter for immunization XR shoulder LT min 2V Today M25.512 - Pain in left shoulder XR elbow LT 2V Today M25.522 - Pain in left elbow Lipid Panel Today Z00.00 - Encounter for general adult medical examination without abnormal findings Comprehensive [place]. Panel Fast Today Z00.00 - Encounter for general adult medical examination without abnormal findings Medications: New losartan 25 mg PO DAILY 90 days 90 tabs 1RF I10 - Essential (primary) hypertension
[2024-09-18 09:17] VITALS: BP 150/102; BMI 26.8
[2024-09-18 09:36] VITALS: BP 150/90
== END 2024-09-18 09:39 | disposition home or self-care (01) ==
LOC: HO.HMCH 09:12
PROVIDERS: PCP Internal Medicine; Visit Provider Internal Medicine
DX: Z00.00 Encounter for general adult medical examination without abnormal findings (principal); M25.512 Pain in left shoulder; M25.522 Pain in left elbow; I10 Essential (primary) hypertension

== ENCOUNTER → 2024-09-18 09:12 | Outpatient (BNVA) | payer OTHER, SELFPAY | PROVIDERS: PCP Internal Medicine; Visit Provider Internal Medicine | DX: Z00.01 Encounter for general adult medical examination with abnormal findings (principal); M25.512 Pain in left shoulder; M25.522 Pain in left elbow; I10 Essential (primary) hypertension; Z28.21 Immunization not carried out because of patient refusal | CPT/HCPCS: 90471; 96127 ==

== ENCOUNTER 2024-09-21 09:09 | Outpatient (REF) | payer OTHER, SELFPAY ==
[2024-09-21 11:38] LABS: Alanine Aminotransferase 74 U/L (0-40); Albumin Level 4.6 g/dL (3.5-5.0); Alkaline Phosphatase 55 U/L (39-117); Anion Gap 10 (12-20); Aspartate Amino Transferase 36 U/L (5-37); Bilirubin Total 1.7 mg/dL (0.0-1.0); Blood Urea Nitrogen 17 mg/dL (9-16); Calcium 9.7 mg/dL (8.4-10.2); Carbon Dioxide 29 mmol/L (22-29); Chloride 106 mmol/L (96-108); Cholesterol 165 mg/dL (<200); Estimated Glomerular Filt Rate 57; Glucose Fasting 89 mg/dL (60-99); HDL Cholesterol 50 mg/dL (>40); LDL Cholesterol Calculated 95 mg/dL (<100); Potassium 4.8 mmol/L (3.3-5.1); Sodium 140 mmol/L (135-145); Total Protein 7.9 g/dL (6.5-8.0); Triglycerides 104 mg/dL (<150)
== END 2024-09-21 09:10 | disposition home or self-care (01) ==
LOC: HO.LAB 09:09
PROVIDERS: PCP Internal Medicine; Visit Provider Internal Medicine
DX: Z00.00 Encounter for general adult medical examination without abnormal findings (principal); M25.512 Pain in left shoulder; M25.522 Pain in left elbow
CPT/HCPCS: 36415; 73030; 73070; 80053; 80061

== ENCOUNTER 2025-03-25 09:43 | Outpatient (AMB) | payer OTHER, SELFPAY ==
--- NOTE | 2025-03-25 09:48 | A.OFFPC_ITS ---
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 Accompanied by: Spouse Allergies No Known Allergies [No Known Allergies*] Allergy (Verified 03/25/25 10:00) Medication List - Last Reconciled 03/25/25 by Leann Liz MD hydrocortisone 1% (Anti-Itch (hydrocortisone)) 1 appl topical TID PRN 30 days losartan 100 mg PO DAILY 90 days Tobacco use date assessed: 03/25/25 Dental Screening Dental Screen Date: 03/25/25 Did you have a dental visit in the last 12 months?: No Did you have a dental problem in the last 6 months where you did not have access to dental care?: No Was dental information given to patient?: Patient has dentist HPI HPI Comments History of Present Illness Details The patient is a 54-year-old male presenting with chronic cough, linked to eating, and associated with phlegm production and occasional vomiting, suggesting a potential association with gastroesophageal reflux disease. The cough's persistence over years has led to considerable patient discomfort. There is no current usage of medications targeting gastroesophageal reflux. The patient's history includes hypertension managed with maximal dosing of Losartan, yet continues to exhibit above-goal blood pressure levels. Past laboratory results indicated elevated liver enzymes, necessitating further evaluation. The patient has a long-standing diagnosis of psoriasis and elevated hemoglobin. Dermatological symptoms are managed with topical hydrocortisone. Arthritic manifestations include minor shoulder arthritis with intermittent discomfort. Regularity in medications, such as Losartan and hydrocortisone, is noted without other systemic involvement observed. [facility] Medical History (Updated 03/25/25 @ 10:14 by Leann Liz MD) Elevated blood pressure reading in office without diagnosis of hypertension Overweight (BMI 25.0-29.9) GERD (gastroesophageal reflux disease) Surgical History No pertinent past surgical history Family History Father No problems noted. Mother No problems noted. Brother Asthma Social History Housing: Apartment Are you a primary primary care nurse to a significant other at home: No Do you presently have visiting nurse or other home services: No Alcohol intake: former Patient Tobacco Use Status: Former Tobacco user Tobacco use type: Cigarette e-Cigarette/Vaping Use: Never Used Second Hand Smoke Exposure: No service: No Current occupational status: employed Current occupational exposures/hazards: No Cognitive needs: No Hearing needs: No Vision needs: Yes Questionnaire PHQ-9 Over the last 2 weeks, how often have you been bothered by any of the following problems? 1. Little interest or pleasure in doing things: not at all 2. Feeling down, depressed, or hopeless: not at all 3. Trouble falling or staying asleep, or sleeping too much: not at all 4. Feeling tired or having little energy: not at all 5. Poor appetite or overeating: not at all 6. Feeling bad about yourself - or that you are a failure or have let yourself or your family down: not at all 7. Trouble concentrating on things, such as reading the newspaper or watching television: not at all 8. Moving or speaking so slowly that other people could have noticed. Or the opposite - being so fidgety or restless that you have been moving around a lot more than usual: not at all 9. Thoughts that you would be better off or of hurting yourself in some way: not at all Total score: 0 Depression Screening Interpretation: Negative Depression Screening Done: Yes 19433 - PHQ-9 Billing: Yes Source: Developed by Drs. Liang Bravo, Lili Castro, Gigi Cantor and colleagues, with an educational alba from [employer]. Thrive Questionnaire Date Thrive assessed: 03/25/25 I am a: Patient What is your living situation today?: I have a steady place to live Within the past 12 months, did the food you bought not last and you didn't have the money to get more?: I choose not to answer this question Within the past 12 months, did you worry whether your food would run out before you got money to buy more?: I choose not to answer this question Do you have trouble paying for medicines?: No Do you have trouble getting transportation to medical appointments?: No Do you have trouble paying your heating and electricity bill?: No Do you have trouble taking care of your child, family member or friend?: No Do you have trouble with day-to-day activities such as bathing, preparing meals, shopping, managing finances, etc.?: No Are you currently unemployed and looking for a job?: No Are you interested in more education?: Yes Please select the resources that you would like help with: None Currently or been in a relationship where the following occur: No concerns reported THRIVE Score: 0 AUDIT C Alcohol Use Questionnaire (AUDIT-C) 1. How often do you have a drink containing alcohol?: Never Total Score: 0 Score Reviewed/Action Taken: No HEATH-7 AMB Questionnaire HEATH-7 Date HEATH - 7 assessed: 03/25/25 Feeling nervous, anxious, or on edge: 0 = Not at all Not being able to stop or control worryin = Not at all Worrying too much about different things: 0 = Not at all Trouble relaxin = Not at all Being so restless that it is hard to sit still: 0 = Not at all Becoming easily annoyed or irritable: 0 = Not at all Feeling afraid as if something awful might happen: 0 = Not at all Total HEATH-7 score (0-4 normal; 5-9 mild; 10-14 moderate; 15-21 severe): 0 Source: Developed by Drs. Liang Bravo, Lili Castro, Gigi Cantor and colleagues, with an educational alba from [employer]. HEATH-7 Assessment Billing HEATH-7 Assessment Tool: HEATH-7 Assessment 94101 Review of Systems Const All systems reviewed & are unremarkable except as noted in HPI and below Card Denies chest pain at rest, Denies chest pain with activity, Denies edema, Denies irregular heart rhythm, Denies claudication, Denies dyspnea, Denies dyspnea on exertion, Denies orthopnea, Denies paroxysmal nocturnal dyspnea and Denies slow heart rate Resp Reports cough, Denies dyspnea and Denies dyspnea on exertion GI Reports heartburn Musc Reports arthralgias Physical exam (Primary Care) Vital Signs: Last Vital Signs BP 138/90 H 03/25/25 09:51 BMI result Body Mass Index 27.2 Tobacco/Smoking Status: Tobacco use Status Tobacco use date assessed 03/25/25 03/25/25 09:59 Patient Tobacco Use Status Former Tobacco user 03/25/25 09:58 Tobacco use type Cigarette 03/25/25 09:58 e-Cigarette/Vaping Use Never Used 03/25/25 09:58 PHQ-9: PHQ-9 Score PHQ-9: Total score 0 03/25/25 09:58 Depression Screening Interpretation: Negative Thrive Assessment: Date of Thrive Assessment Date Thrive assessed 03/25/25 03/25/25 09:58 Currently or been in a relationship where the following occur: No concerns reported Resp Effort & Inspection: normal respiratory effort Auscultation: clear to auscultation bilaterally Cardio Jugular venous distension: no JVD Rate: regular rate Rhythm: regular rhythm Heart sounds: S1 normal heart sound present and S2 normal heart sound present Skin General skin exam: no rashes or lesions noted Extrem General: Yes full ROM Coding Level of Care Code Est Pt Level 4 (24082) Complex EM visit Add On G2211 Diagnoses Essential hypertension I10 Elevated hemoglobin D58.2 Transaminitis R74.01 Chronic GERD K21.9 Chronic cough R05.3 Acute pain of left shoulder M25.512 Chronicity: acute Psoriasis L40.9 Additional Codes PHQ-9 - 25381 - PHQ-9 Billing: Yes ([id number]) HEATH-7 Assessment Billing - HEATH-7 Assessment Tool: HEATH-7 Assessment 93616 ([id number]) Time Spent (min) 22 Assessment & Plan Assessment & Plan (1) Essential hypertension: Code(s): I10 - Essential (primary) hypertension Category: Medical (2) Elevated hemoglobin: Code(s): D58.2 - Other hemoglobinopathies Category: Medical (3) Transaminitis: Code(s): R74.01 - Elevation of levels of liver transaminase levels Category: Medical (4) Chronic GERD: Code(s): K21.9 - Gastro-esophageal reflux disease without esophagitis Category: Medical (5) Chronic cough: Code(s): R05.3 - Chronic cough Category: Medical (6) Left shoulder pain: Code(s): M25.512 - Pain in left shoulder Category: Medical Qualifiers: Chronicity: acute Qualified Code(s): M25.512 - Pain in left shoulder (7) Psoriasis: Code(s): L40.9 - Psoriasis, unspecified Category: Medical Plan The initiation of a proton pump inhibitor is planned, to be taken half an hour before breakfast, targeting GERD symptoms and chronic cough management. There is consideration for adjusting antihypertensive therapy, should blood pressure control remain inadequate. Elevated liver enzymes prompt abdominal ultrasound evaluation, and monitoring will decide subsequent management. Slower eating practices are advised to minimize phlegm production. A follow-up will facilitate assessment of these interventions and symptom progression. Patient was informed and verbally consented to the use of an ambient scribe for clinic note documentation during this visit. We discussed the chronic cough's potential link with reflux and the proposed introduction of a proton pump inhibitor as a therapeutic measure. The potential necessity for hypertension treatment adjustment was considered, given the suboptimal blood pressure outcomes observed with current therapy. Elevated liver enzymes warrant further visualization via ultrasound, acknowledging past normal colonoscopy and endoscopy results. We explored strategies to reduce phlegm production, such as slower eating. Orthopedic evaluation discussion was initiated should shoulder symptoms persist. The patient expressed understanding and consent towards the outlined interventions, with encouragement for following up to evaluate therapy effectiveness. Orders: Orders Complete Blood Count Auto Diff Today D58.2 - Other hemoglobinopathies Hepatitis A,B,C Profile Today R74.01 - Elevation of levels of liver transaminase levels DNA Analysis Hemochromatosis Today D58.2 - Other hemoglobinopathies XR chest 2V Today R05.3 - Chronic cough US abdomen lowery w elastography Today R74.01 - Elevation of levels of liver transaminase levels Liver Panel Today R74.01 - Elevation of levels of liver transaminase levels IRON PROFILE Today D64.9 - Anemia, unspecified PSA,Total (Free>4and<10) Today R35.1 - Nocturia Referrals Orthopedics Referral M25.512 - Pain in left shoulder Medications: New omeprazole 20 mg PO DAILY 90 days 90 caps 0RF K21.9 - Gastro-esophageal reflux disease without esophagitis Patient Instructions: - Take prescribed medication for acid reflux half an hour before breakfast each day. - Follow eating in a slow and relaxed manner to assist with phlegm production. - Consider dietary modifications known to affect GERD and phlegm production. - Monitor blood pressure regularly and continue current antihypertensive regimen unless symptoms suggest otherwise. - Follow up as instructed to reassess blood pressure, liver enzymes, and response to GERD medication. - Notify the medical office should symptoms intensify or new symptoms arise.
[2025-03-25 09:51] VITALS: BP 138/90; BMI 27.2
== END 2025-03-25 10:13 | disposition home or self-care (01) ==
LOC: HO.HMCH 09:43
PROVIDERS: PCP Internal Medicine; Visit Provider Internal Medicine
DX: I10 Essential (primary) hypertension (principal); D58.2 Other hemoglobinopathies; R74.01 Elevation of levels of liver transaminase levels; K21.9 Gastro-esophageal reflux disease without esophagitis; R05.3 Chronic cough; M25.512 Pain in left shoulder; L40.9 Psoriasis, unspecified

== ENCOUNTER → 2025-03-25 09:43 | Outpatient (BNVA) | payer OTHER, SELFPAY | PROVIDERS: PCP Internal Medicine; Visit Provider Internal Medicine | DX: I10 Essential (primary) hypertension (principal); D58.2 Other hemoglobinopathies; R74.01 Elevation of levels of liver transaminase levels; K21.9 Gastro-esophageal reflux disease without esophagitis; R05.3 Chronic cough; M25.512 Pain in left shoulder; L40.9 Psoriasis, unspecified | CPT/HCPCS: 96127 ==

== ENCOUNTER 2025-03-26 07:49 | Outpatient (REF) | payer OTHER, SELFPAY ==
--- NOTE | ~2025-03-26 | XR_ITS ---
CLINICAL HISTORY: R05.3 - Chronic cough 2 view chest x-ray Comparison: None Findings: The lungs are clear. Normal size heart. No acute fracture. IMPRESSION: 1. No acute findings. This document has been electronically signed by: Heber Rea MD on 03/26/2025 15:49:53
[2025-03-26 08:13] LABS: MANUAL DIFF FLAG NO
[2025-03-26 08:32] LABS: Basophils Absolute Auto 0.1 X10*3/uL (0.0-0.2); Eosinophils Absolute Auto 0.2 X10*3/uL (0.0-0.4); Eosinophils Percent Auto 1.8 % (0-4); Hematocrit 48.7 % (42.0-52.0); Hemoglobin 16.5 g/dl (14.0-18.0); Lymphocytes Absolute Auto 2.2 X10*3/uL (1.2-4.9); Lymphocytes Percent Auto 21.1 % (20-40); Mean Corpuscular HGB Conc 33.9 g/dl (31.0-36.0); Mean Corpuscular Hemoglobin 30.4 pg (27.0-33.0); Mean Corpuscular Volume 89.7 fL (80.0-98.0); Mean Platelet Volume 10.3 fL (9.4-12.4); Monocytes Absolute Auto 0.7 X10*3/uL (0.1-1.2); Monocytes Percent Auto 6.2 % (2-11); Neutrophils Absolute Auto 7.2 x10*3/uL (2.0-8.3); Neutrophils Percent Auto 68.9 % (45-73); Platelet Count 222 X10*3/uL (160-400); Red Blood Count 5.43 X10*6/uL (4.60-5.80); Red Cell Distribution Width 12.4 % (11.0-16.0); White Blood Count 10.4 X10*3/uL (4.8-10.8)
[2025-03-26 09:51] LABS: PSA,Total (Free>4and<10) 1.48 ng/mL (0.00-4.00)
[2025-03-26 09:53] LABS: HBS Num1 0.07 mIU/mL (0-7.99); HBc Num1 0.06 S/CO (0.00-0.79); HBsAGNum1 0.34 S/CO (0.00-0.99); Hepatitis A Antibody IgM 0.13 Index (0-0.79); Hepatitis B Core Antibody Nonreactive (Nonreactive); Hepatitis B Surface Antigen Negative (Negative); ~Hepatitis A Antibody IgM Nonreactive (Nonreactive); ~Hepatitis B Surface Antibody NONREACTIVE (Nonreactive); ~Hepatitis C Antibody Nonreactive (Nonreactive)
[2025-03-26 10:34] LABS: Alanine Aminotransferase 53 U/L (0-40); Albumin Level 4.6 g/dL (3.5-5.0); Aspartate Amino Transferase 30 U/L (5-37); Bilirubin Direct 0.2 mg/dL (0.0-0.5); Bilirubin Total 0.8 mg/dL (0.0-1.0); Iron 86 mcg/dL (45-160); Percent Iron Saturation 30 % (15-50); Total Iron Binding Capacity 289 mcg/dL (228-428); Total Protein 7.7 g/dL (6.5-8.0); Unsaturated Iron Binding 203 ug/dL
[2025-03-26 12:51] LABS: Alkaline Phosphatase 58 U/L (39-117)
== END 2025-03-26 07:50 | disposition home or self-care (01) ==
LOC: HO.XRAY 07:49
PROVIDERS: PCP Internal Medicine; Visit Provider Internal Medicine
DX: D58.2 Other hemoglobinopathies (principal); R74.01 Elevation of levels of liver transaminase levels; D64.9 Anemia, unspecified; R35.1 Nocturia; R05.3 Chronic cough; Z12.5 Encounter for screening for malignant neoplasm of prostate
CPT/HCPCS: 36415; 71046; 80076; 81256; 83540; 84153; 85025; 86704; 86706; 86709; 86803; 87340

== ENCOUNTER → 2025-03-26 08:21 | Outpatient (BNV) | payer OTHER, SELFPAY | PROVIDERS: PCP Internal Medicine; Visit Provider Radiology Diagnostic Radiology | DX: R05.3 Chronic cough (principal) | CPT/HCPCS: 71046 ==

== ENCOUNTER 2025-05-09 07:43 | Outpatient (REF) | payer OTHER, SELFPAY ==
--- NOTE | ~2025-05-09 | US_ITS ---
EXAMINATION: US ABDOMEN LIMITED WITH LIVER ELASTOGRAPHY HISTORY: R74.01 - Elevation of levels of liver transaminase levels TECHNIQUE: Real-time grayscale ultrasound imaging of the right upper quadrant was performed and images were reviewed. COMPARISON: There are no prior studies available for comparison. FINDINGS: Liver: The right lobe of the liver measures 14.2 cm in size. The left lobe of the liver measures 10.2 cm in size. The liver demonstrates increased echotexture, consistent with steatosis. No focal mass or intrahepatic biliary ductal dilatation is identified. There is normal hepatopedal flow in the portal vein. Ultrasound elastography of the liver was performed with 10 separate measurements of the liver parenchyma with the patient in the supine position. Measurements were obtained approximately 2 cm below Dru's capsule and perpendicular to the capsule. The median shear wave velocity is 1.22 m/s. The interquartile range/median (IQR/median) is 0.09. Gallbladder and biliary tree: The gallbladder is unremarkable, without evidence of calculi, wall thickening, or pericholecystic fluid. There is no sonographic Gutierrez sign. The common bile duct is normal in caliber measuring 6 mm. Right Kidney: The right kidney measures 9.6 cm in length. The right kidney is unremarkable, without evidence of masses, hydronephrosis, or calculi. Pancreas: The pancreatic head and neck are unremarkable. The remainder of the pancreas is obscured by bowel gas. Abdominal aorta and inferior vena cava: The visualized portions of the abdominal aorta and inferior vena cava are normal in caliber. There is no free fluid in the right upper quadrant. US/US abdomen lowery w elastography IMPRESSION: Hepatic steatosis. The median shear wave velocity in the liver is 1.22 m/s, corresponding to a median liver stiffness of 4.57 kPa. The IQR/median value is 0.11. This is indicative of a quality data set. Findings are indicative of a normal elastography value with a low likelihood of severe fibrosis or cirrhosis. REFERENCE: Society of Radiologists in Ultrasound Liver Stiffness Thresholds (2019): LIVER STIFFNESS THRESHOLDS: *Shear wave velocity less than 1.3 m/s (Liver Stiffness equal or less than 5 kPa): High probability of being normal. *Shear wave velocity less than 1.7 m/s (Liver Stiffness less than 9 kPa): In the absence of other known clinical signs, rules out compensated advanced chronic liver disease. *Shear wave velocity between 1.7-2.1 m/s (Liver Stiffness 9-13 kPa): Suggestive of compensated advanced chronic liver disease but need further test for confirmation. *Shear wave velocity between 2.1-2.4 m/s (Liver Stiffness 13-17 kPa): Rules in compensated advanced chronic liver disease. *Shear wave velocity greater than 2.4 m/s (Liver Stiffness over 17 kPa): Suggestive of clinically significant portal hypertension. QUALITY OF DATA SET: *IQR/Median value equal or less than 0.15 implies a quality data set. *IQR/Median value over 0.15 implies a poor quality data set. SIGNIFICANT CHANGE FROM PRIOR EXAM: Significant change if liver stiffness measurement is 10% or greater from prior exam. OTHER CONSIDERATIONS: The stage of liver fibrosis may be overestimated in the setting of acute hepatitis, liver inflammation, elevated liver function tests, hepatic vascular congestion, obstructive cholestasis, non-fasting state, and infiltrative diseases such as amyloidosis and lymphoma. In some patients with NAFLD, the liver stiffness thresholds for compensated advanced chronic liver disease may be lower. In causes other than viral hepatitis and NAFLD, liver stiffness thresholds are not well established. Electronically signed by: Liang Sykes MD 05/09/2025 09:00 AM EDT
== END 2025-05-09 07:44 | disposition home or self-care (01) ==
LOC: HO.US 07:43
PROVIDERS: PCP Internal Medicine; Visit Provider Internal Medicine
DX: R74.01 Elevation of levels of liver transaminase levels (principal)
CPT/HCPCS: 76705; 76981

== ENCOUNTER → 2025-05-09 07:43 | Outpatient (BNV) | payer OTHER, SELFPAY | PROVIDERS: PCP Internal Medicine; Visit Provider Radiology Diagnostic Radiology | DX: K76.0 Fatty (change of) liver, not elsewhere classified (principal) | CPT/HCPCS: 76705 ==

== ENCOUNTER → 2025-05-24 08:46 | Outpatient (BNVA) | payer OTHER, SELFPAY | PROVIDERS: PCP Internal Medicine | DX: I10 Essential (primary) hypertension (principal) | CPT/HCPCS: 99211 ==

== ENCOUNTER 2025-06-14 13:31 | Outpatient (AMB) | payer OTHER, SELFPAY ==
--- NOTE | 2025-06-14 13:40 | A.OFFVIS_ITS ---
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 Patient was seen by his PCP who referred to orthopedics for persistent shoulder pain. Patient reports pain that has been present for about 3-4 years, as well as clicking with extension and flexion of arm. His pain radiates down to the elbow, and sometimes down to fingers, also radiates up to neck. He describes having a pulling sensation. No previous injury. 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 He states the pain has been present for several years and it is worse with lifting reaching and carrying objects. He has minor discomfort with sleeping at night. He has had no treatment to date. [facility] Medical History (Updated 06/14/25 @ 14:04 by Leonela Bangura PA-C) Elevated blood pressure reading in office without diagnosis of hypertension Overweight (BMI 25.0-29.9) GERD (gastroesophageal reflux disease) Surgical History No pertinent past surgical history Family History Father No problems noted. Mother No problems noted. Brother Asthma Social History Housing: Apartment Are you a primary career services assistant to a significant other at home: No Do you presently have visiting nurse or other home services: No Alcohol intake: former Patient Tobacco Use Status: Former Tobacco user Tobacco use type: Cigarette e-Cigarette/Vaping Use: Never Used Second Hand Smoke Exposure: No service: No Current occupational status: employed Current occupational exposures/hazards: No Cognitive needs: No Hearing needs: No Vision needs: Yes Review of Systems Const All systems reviewed & are unremarkable except as noted in HPI and below Physical Exam Const General: cooperative and no acute distress Orientation/consciousness: patient oriented x3 Resp Effort & Inspection: normal respiratory effort and able to speak in complete sentences Cardio Peripheral pulses: Peripheral pulses 2+ throughout Neuro General: patient oriented x3 Extrem Other: Left shoulder normal to inspection he has full range of motion in all planes. He has tenderness over the proximal biceps tendon with a positive Archer's. 5/5 rotator cuff strength. Neurovascularly intact. Office Procedures AMB Joint Injection/Aspiration Joint Injection/Aspiration Primary Site: left shoulder Prep: site was prepped using aseptic technique, ethochloride spray was applied and injection warnings given Injected: 80 mg of, DepoMedrol, with 8 mL of, 1% plain lidocaine and in the subcromial space Approach Used: posterolateral Coding - Glenohumeral/Tronchanteric Bursa/Intraarticular Procedure code (CPT) selection complete Results Reviewed Results Reviewed: XR shoulder LT min 2V IMPRESSION: Minimal acromioclavicular osteoarthritis. Assessment & Plan Assessment & Plan (1) Biceps tendonitis on left: Code(s): M75.22 - Bicipital tendinitis, left shoulder Category: Medical Plan: We discussed options today which includes physical therapy which an order was placed for today. I did give him the information to make an appointment. I also discussed the benefits of steroid injection which she is interested in today. Left shoulder injection was performed today and the patient tolerated well. Patient will continue to advance activities as tolerated and full for the next 8-12 weeks he develops worsening symptoms he can contact our office otherwise he will follow up as needed. Orders: Orders PT Evaluation and Treatment Today M75.22 - Bicipital tendinitis, left shoulder Coding Level of Care Code New Pt Level 3 (33254) Complex EM visit Add On G2211 Diagnoses Biceps tendonitis on left M75.22 CPT Codes Coding - Joint 7: - Glenohumeral/Tronchanteric Bursa/Intraarticular ([id number])
== END 2025-06-14 14:42 | disposition home or self-care (01) ==
LOC: HO.HOS 13:32
PROVIDERS: PCP Internal Medicine; Visit Provider Physician Assistant
DX: M75.22 Bicipital tendinitis, left shoulder (principal)
CPT/HCPCS: 20610; 99203

== ENCOUNTER → 2025-06-14 13:31 | Outpatient (BNVA) | payer OTHER, SELFPAY | PROVIDERS: PCP Internal Medicine; Visit Provider Physician Assistant | DX: M25.512 Pain in left shoulder (principal); M75.22 Bicipital tendinitis, left shoulder | CPT/HCPCS: 20610; J1010; J2003 ==

== ENCOUNTER 2025-09-26 10:53 | Outpatient (AMB) | payer OTHER, SELFPAY ==
[2025-09-26 10:55] VITALS: BP 132/90; PULSE 80; TEMP 36.2; O2SAT 99; BMI 26.7
--- NOTE | 2025-09-26 10:55 | MHC.PC.OV ---
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: No Accompanied by: Spouse Allergies No Known Allergies (No Known Allergies*) Allergy (Verified 09/26/25 11:04) Medication List - Last Reconciled 09/26/25 by Leann Liz MD amlodipine 2.5 mg PO DAILY 90 days hydrocortisone 1% (Anti-Itch (hydrocortisone)) 1 appl topical TID PRN 30 days losartan 100 mg PO DAILY 90 days omeprazole 20 mg PO DAILY Tobacco use date assessed: 09/26/25 Dental Screening Dental Screen Date: 09/26/25 Did you have a dental visit in the last 12 months?: No Did you have a dental problem in the last 6 months where you did not have access to dental care?: No Was dental information given to patient?: Patient has dentist HPI HPI Comments History of Present Illness Details The patient is a 54-year-old male presenting for an annual physical exam. The patient has a history of hepatic steatosis, which was identified on a previous sonogram. He also reports having black hemorrhoids. The patient takes omeprazole, which he purchases over the counter. Regarding health maintenance, the patient's last tetanus vaccine was in 2011, making him due for a booster. He declined the influenza vaccine. His parents are both alive and have no significant health problems. The patient is due for a tetanus vaccine, as the last one was administered in 2011. Arrangements were made to administer the tetanus vaccine during the visit. The patient declined the influenza vaccine for this year. A discussion was held regarding colon cancer screening done 2021 which should be repeated in 2031. FOR[facility], LATER [facility] Medical History Elevated blood pressure reading in office without diagnosis of hypertension Overweight (BMI 25.0-29.9) GERD (gastroesophageal reflux disease) Surgical History No pertinent past surgical history Family History Father No problems noted. Mother No problems noted. Brother Asthma Social History Housing: Apartment Are you a primary health care marketing manager to a significant other at home: No Do you presently have visiting nurse or other home services: No Alcohol intake: former Patient Tobacco Use Status: Former Tobacco user Tobacco use type: Cigarette e-Cigarette/Vaping Use: Never Used Second Hand Smoke Exposure: No service: No Current occupational status: employed Current occupational exposures/hazards: No Cognitive needs: No Hearing needs: No Vision needs: Yes Questionnaire PHQ-9 Over the last 2 weeks, how often have you been bothered by any of the following problems? 1. Little interest or pleasure in doing things: not at all 2. Feeling down, depressed, or hopeless: not at all 3. Trouble falling or staying asleep, or sleeping too much: several days 4. Feeling tired or having little energy: not at all 5. Poor appetite or overeating: not at all 6. Feeling bad about yourself - or that you are a failure or have let yourself or your family down: not at all 7. Trouble concentrating on things, such as reading the newspaper or watching television: not at all 8. Moving or speaking so slowly that other people could have noticed. Or the opposite - being so fidgety or restless that you have been moving around a lot more than usual: not at all 9. Thoughts that you would be better off or of hurting yourself in some way: not at all Total score: 1 Depression Screening Interpretation: Negative Depression Screening Done: Yes 48475 - PHQ-9 Billing: Yes Source: Developed by Drs. Liang Bravo, Lili Castro, Gigi Cantor and colleagues, with an educational alba from [employer]. Thrive Questionnaire Date Thrive assessed: 09/19/25 I am a: Patient What is your living situation today?: I have a steady place to live Within the past 12 months, did the food you bought not last and you didn't have the money to get more?: I choose not to answer this question Within the past 12 months, did you worry whether your food would run out before you got money to buy more?: I choose not to answer this question Do you have trouble paying for medicines?: No Do you have trouble getting transportation to medical appointments?: No Do you have trouble paying your heating and electricity bill?: No Do you have trouble taking care of your child, family member or friend?: No Do you have trouble with day-to-day activities such as bathing, preparing meals, shopping, managing finances, etc.?: No Are you currently unemployed and looking for a job?: No Are you interested in more education?: I choose not to answer this question Please select the resources that you would like help with: None Currently or been in a relationship where the following occur: I choose not to answer THRIVE Score: 0 AUDIT C Alcohol Use Questionnaire (AUDIT-C) 1. How often do you have a drink containing alcohol?: Never 3. How often do you have six or more drinks on one occasion?: Never Total Score: 0 Score Reviewed/Action Taken: No HEATH-7 AMB Questionnaire HEATH-7 Date HEATH - 7 assessed: 03/25/25 Feeling nervous, anxious, or on edge: 0 = Not at all Not being able to stop or control worryin = Not at all Worrying too much about different things: 0 = Not at all Trouble relaxin = Not at all Being so restless that it is hard to sit still: 0 = Not at all Becoming easily annoyed or irritable: 0 = Not at all Feeling afraid as if something awful might happen: 0 = Not at all Total HEATH-7 score (0-4 normal; 5-9 mild; 10-14 moderate; 15-21 severe): 0 Source: Developed by Drs. Liang Bravo, Lili Castro, Gigi Cantor and colleagues, with an educational alba from [employer]. HEATH-7 Assessment Billing HEATH-7 Assessment Tool: HEATH-7 Assessment 33107 Review of Systems Const All systems reviewed & are unremarkable except as noted in HPI and below Card Denies chest pain at rest, Denies chest pain with activity, Denies edema, Denies irregular heart rhythm, Denies claudication, Denies dyspnea, Denies dyspnea on exertion, Denies orthopnea, Denies paroxysmal nocturnal dyspnea and Denies slow heart rate Resp Denies cough, Denies dyspnea and Denies dyspnea on exertion Physical exam (Primary Care) Vital Signs: Last Vital Signs Temp 97.1 F 09/26/25 10:55 Pulse 80 09/26/25 10:55 BP 132/90 H 09/26/25 10:55 Pulse Ox 99 09/26/25 10:55 Oxygen Delivery Method Room Air 09/26/25 10:55 BMI result Body Mass Index 26.7 Tobacco/Smoking Status: Tobacco use Status Tobacco use date assessed 09/26/25 09/26/25 10:58 Patient Tobacco Use Status Former Tobacco user 09/26/25 10:58 Tobacco use type Cigarette 09/26/25 10:58 e-Cigarette/Vaping Use Never Used 09/26/25 10:58 PHQ-9: PHQ-9 Score PHQ-9: Total score 1 09/26/25 11:07 Depression Screening Interpretation: Negative Thrive Assessment: Date of Thrive Assessment Date Thrive assessed 09/19/25 09/26/25 10:58 Currently or been in a relationship where the following occur: I choose not to answer HENDC Head: Yes normal to inspection, Yes normocephalic and Yes atraumatic Ears: external ears normal Eyes General: appearance normal, both eyes and all related structures Eyelids: Yes eyelids normal Conjunctivae: conjunctivae normal Neck Neck: Yes normal visual inspection and Yes supple Resp Effort & Inspection: normal respiratory effort Auscultation: clear to auscultation bilaterally Cardio Jugular venous distension: no JVD Rate: regular rate Rhythm: regular rhythm Heart sounds: S1 normal heart sound present and S2 normal heart sound present GI Inspection: Yes normal to inspection Palpation (GI): Soft to palpation and nontender Auscultation: normal bowel sounds Skin General skin exam: no rashes or lesions noted Neuro General: no focal motor deficits Extrem General: Yes full ROM Psych Appearance: grossly normal Immunizations Boostrix Tdap 2.5 Lf unit-8 mcg-5 Lf/0.5 mL intramuscular syringe Performing Provider: Leann Liz MD [facility] Administered by: Tg Olivia RN on 09/26/25 11:24 Dose Route Admin Location Dispensed Lot Number Expiration Date [facility] 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 0.5 mL IM Left Deltoid 0.5 mL [id number] 04/25/28 [id number] [employer] Total Dispensed Waste 0.5 mL 0 % VIS Given Date VIS Provided VIS Publication Date 09/26/25 Single Vaccine 21 Eligibility Eligibility Date Funding Source Not [facility] Eligible 09/26/25 Private Coding Level of Care Code Est Pt Prev Care 40-64y(10722) Diagnoses Physical exam Z00.00 Additional Codes PHQ-9 - 51856 - PHQ-9 Billing: Yes ([id number]) HEATH-7 Assessment Billing - HEATH-7 Assessment Tool: HEATH-7 Assessment 31473 ([id number]) Time Spent (min) 30 Assessment & Plan Assessment & Plan (1) Physical exam: Code(s): Z00.00 - Encounter for general adult medical examination without abnormal findings Category: Medical Plan Repeat in a year. Tdap vaccine administered today. Colonoscopy for 2031. Orders: Orders PSA,Total (Free>4and<10) Today R35.1 - Nocturia TDaP Immunization Today Z23 - Encounter for immunization Lipid Panel Today E78.5 - Hyperlipidemia, unspecified Comprehensive [place]. Panel Fast Today I10 - Essential (primary) hypertension
== END 2025-09-26 11:25 | disposition home or self-care (01) ==
LOC: HO.HMCH 10:54
PROVIDERS: PCP Internal Medicine; Visit Provider Internal Medicine
DX: Z23 Encounter for immunization (principal); Z00.00 Encounter for general adult medical examination without abnormal findings

== ENCOUNTER → 2025-09-26 10:53 | Outpatient (BNVA) | payer OTHER, SELFPAY | PROVIDERS: PCP Internal Medicine; Visit Provider Internal Medicine | DX: Z00.00 Encounter for general adult medical examination without abnormal findings (principal); R35.1 Nocturia; E78.5 Hyperlipidemia, unspecified; I10 Essential (primary) hypertension; Z23 Encounter for immunization | CPT/HCPCS: 90471; 90715; 96127 ==